=== PATIENT | male | born 1995 | race Caucasian/White ===

== ENCOUNTER 2016-11-06 18:16 | Emergency (ER) | payer MEDICAID, OTHER ==
[~2016-11-06] VITALS: Ht 170.2 cm; Wt 78.0 kg
[~2016-11-06 18:16] MED LIST: HYDR-3498 PO; NAPR-688 PO; OMEP20CA9 PO; ONDA4TAB35 PO
[2016-11-06 18:53] VITALS: Ht 170.2 cm; Wt 78.0 kg
--- NOTE | 2016-11-06 19:48 | ERD ---
ER Documentation Chief Complaint Date/Time DATE: 11/06/16 TIME: 19:43 Chief Complaint Blurry vision, Weak left arm. Had smoked weed in AM HPI 21-year-old male ambulatory to the ED with multiple complaints. He admits to doing "some kind of drugs," yesterday and has been having ongoing symptoms since including intermittent dizziness, blurred vision, generalized weakness anxiety and [place]. No chest pain or palpitations. No abdominal pain, nausea vomiting. No shortness of breath or cough. No fevers or chills. Denies depression, hallucinations, suicidality or homicidality. ROS All systems reviewed and are negative except as per history of present illness. Medications Home Meds Active Scripts Ondansetron Hcl* (Zofran* ODT) 4 mg -ODT Tab.disper, 4 MG PO Q6 Y for NAUSEA AND /OR VOMITING, #10 TAB Prov:ANTIONETTE OSORIO PA-C 03/09/15 Omeprazole* (Prilosec*) 20 Mg Capsule.dr, 20 MG PO DAILY for 14 Days, CAP Prov:ANTIONETTE OSORIO PA-C 03/09/15 Naproxen* (Naproxen*) 500 Mg Tablet, 500 MG PO BID Y for PAIN, #30 TAB Prov:DANETTE VILLA PA-C 02/26/15 Hydrocodone Bit-Acetaminophen* ([place]*) 5-325 Mg Tab, 1 TAB PO Q6 Y for PAIN, # 7 TAB Prov:DANETTE VILLA PA-C 02/26/15 Allergies Allergies: Coded Allergies: No Known Allergy (Unverified , 02/26/15) PMhx/Soc Reviewed in chart. As per HPI. History of Surgery: No Anesthesia Reaction: No Hx Neurological Disorder: No Hx Respiratory Disorders: No Hx Cardiac Disorders: Yes (heart murmur) Hx Psychiatric Problems: Yes Hx Miscellaneous Medical Probl: Yes Hx Alcohol Use: Yes Hx Substance Use: Yes (marijuana) Hx Tobacco Use: Yes Smoking Status: Heavy tobacco smoker FmHx No sudden cardiac , stroke or cancer Physical Exam Vitals Vital Signs Date Time Temp Pulse Resp B/P Pulse Ox O2 Delivery O2 Flow Rate FiO2 11/06/16 18:53 99.2 116 20 159/94 96 Physical Exam Const: Alert, anxious. Head: Atraumatic Eyes: Pupils dilated but equal reactive to light. Normal Conjunctiva. Horizontal nystagmus. ENT: Normal External Ears, Nose and Mouth. Pharynx is clear without erythema or exudate. Neck: Full range of motion. Neck is supple nontender. No lymphadenopathy or masses. No goiter. Resp: Breath sounds are equal and clear to auscultation bilaterally Cardio: Regular rate and rhythm, no murmurs Abd: Soft, non tender, non distended. Normal bowel sounds Skin: No petechiae or rashes Back: No midline or flank tenderness Ext: No cyanosis, or edema Neur: Awake and alert. Cranial nerves II through XII are grossly intact. Motor and sensory equal bilaterally. Gait is normal. Psych: Patient appears anxious but not depressed. Denies hallucinations. Results 24 hrs Current Medications Medications (Trade) Dose Ordered Sig/Pebbles Route PRN Reason Start Time Stop Time Status Last Admin Dose Admin Lorazepam (Ativan) 2 mg ONCE ONCE PO 11/06/16 20:00 11/06/16 20:01 DC 11/06/16 20:06 EKG: Time: 19: 14. Sinus tachycardia. Ventricular 115. Normal UT and QRS. No ST-T wave changes. No axis deviation or ectopy. EP interpretation: Sinus tachycardia otherwise normal ECG. Procedures/MDM DOCUMENTS REVIEWED: ED nurse, prior ED MEDICAL DECISION MAKIN-year-old male ambulatory to the ED with multiple complaints after ingestion "some kind of drugs" yesterday. Presentation consistent with anxiety and drug abuse likely stimulant, e.g. crystal meth. No depression, suicidality or homicidality. No focal neurologic deficit, headache or indication for neuroimaging. Doubt hyperthyroid. Stable for discharge with precautionary instructions, drug cessation counseling and outpatient follow-up as counseled. Counseled patient regarding diagnostic workup, diagnosis and need for followup. Understands to return to ED if symptoms recur, worsen or any other concerns. Departure Diagnosis: Primary Impression: Multiple complaints Additional Impressions: Anxiety reaction Drug abuse Condition: Stable RITIKA ANNE MD Nov 06, 2016 19:48
[2016-11-06] MEDS ORDERED: LORAZEPAM 1 MG TAB PO ONE (20:00)
== END 2016-11-06 20:10 | disposition home or self-care (01) ==
LOC: FTE 18:16
DX: F41.1 Generalized anxiety disorder (principal); F19.90 Other psychoactive substance use, unspecified, uncomplicated; R42 Dizziness and giddiness; R53.1 Weakness; F17.210 Nicotine dependence, cigarettes, uncomplicated
CPT/HCPCS: 93005; Z7502; Z7610

== ENCOUNTER 2017-12-04 08:53 | Emergency (ER) | END 2017-12-04 10:34 | disposition home or self-care (01) ==

== ENCOUNTER 2018-09-07 18:37 | Emergency (ER) | payer OTHER ==
[~2018-09-07] VITALS: Ht 170.2 cm; Wt 97.3 kg
[~2018-09-07 18:37] MED LIST changes: +CEPH-443 PO; +SULF1TAB31 PO
[2018-09-07 18:38] VITALS: BP 144/84; PULSE 79; RESP 16; Ht 170.2 cm; Wt 97.3 kg
[2018-09-07] MEDS ORDERED: BACI28.34 TOP (19:10)
[2018-09-07] MEDS ORDERED: BACITRACIN 0.9 GM OINT TOP ONE (19:30)
--- NOTE | 2018-09-07 19:38 | ERD ---
ER Documentation Chief Complaint Chief Complaint LEFT KNEE WOUND CHECK [id number] AGO HPI 23-year-old male presents for wound check to abrasion incurred on left knee 3 weeks ago. States that he has been picking at the scab. Denies any fevers, chills, erythema, edema, discharge. Denies any allergies. Denies any medical problems. ROS All systems reviewed and are negative except as per history of present illness. Medications Home Meds Active Scripts Bacitracin* (Bacitracin Zinc Oint*) 28.35 Gm Oint, 1 APPLIC TOP BID for wound, #1 TUB APPLI TO Prov:JANETH ALEJANDRO 09/07/18 Cephalexin* (Keflex*) 500 Mg Capsule, 500 MG PO QID for 7 Days, CAP Prov:ABDOUL COUCH MD 12/04/17 Sulfamethoxazole/Trimethoprim* (Bactrim Ds* Tablet) 1 Each Tablet, 1 TAB PO BID for 7 Days, #14 TAB Prov:ABDOUL COUCH MD 12/04/17 Ondansetron Hcl* (Zofran* ODT) 4 mg -ODT Tab.disper, 4 MG PO Q6 PRN for NAUSEA AND/OR VOMITING, #10 TAB Prov:ANTIONETTE OSORIO PA-C 03/09/15 Omeprazole* (Prilosec*) 20 Mg Capsule.dr, 20 MG PO DAILY for 14 Days, CAP Prov:ANTIONETTE OSORIO PA-C 03/09/15 Naproxen* (Naproxen*) 500 Mg Tablet, 500 MG PO BID PRN for PAIN, #30 TAB Prov:DANETTE VILLA PA-C 02/26/15 Hydrocodone Bit-Acetaminophen* ([place]*) 5-325 Mg Tab, 1 TAB PO Q6 PRN for PAIN, #7 TAB Prov:DANETTE VILLA PA-C 02/26/15 Allergies Allergies: Coded Allergies: No Known Allergy (Unverified , 09/07/18) PMhx/Soc History of Surgery: No Anesthesia Reaction: No Hx Neurological Disorder: No Hx Respiratory Disorders: No Hx Cardiac Disorders: Yes (heart murmur) Hx Psychiatric Problems: Yes Hx Miscellaneous Medical Probl: Yes Hx Alcohol Use: Yes (social) Hx Substance Use: Yes (marijuana) Hx Tobacco Use: No FmHx Family History: No diabetes, No coronary disease, No other Physical Exam Vitals Vital Signs Date Temp Pulse Resp B/P (MAP) Pulse Ox O2 O2 Flow FiO2 Time Delivery Rate 09/07/18 97.6 79 16 144/84 99 18:38 (104) Physical Exam Const: No acute distress Head: Atraumatic Eyes: Normal Conjunctiva ENT: Normal External Ears, Nose and Mouth. Neck: Full range of motion. No meningismus. Resp: Clear to auscultation bilaterally Cardio: Regular rate and rhythm, no murmurs Abd: Soft, non tender, non distended. Normal bowel sounds Skin: Approximately 2 cm abrasion noted over the patellar of left knee. There is no surrounding erythema or edema. There is no discharge noted. Distal pulses are intact. There is no pallor or cyanosis. No lymphatic streaking noted. Back: No midline or flank tenderness Ext: No cyanosis, or edema Neur: Awake and alert Psych: Normal Mood and Affect Results 24 hrs Current Medications Medications Dose Sig/Pebbles Start Time Status Last (Trade) Ordered Route PRN Stop Time Admin Dose Reason Admin Bacitracin 1 applic ONCE ONCE 09/07/18 DC 09/07/18 (Bacitracin TOP 19:30 09/07/18 19:17 Oint (Ud)) 19:30 Procedures/MDM Patient's presentation is consistent with abrasion without infection or other complication. Patient was advised to stop picking at the scab and give it a chance to heal. In addition patient was prescribed bacitracin and told to apply 2 times daily. I have low suspicion for infection, compartment syndrome, sepsis, or any other emergent condition. Patient discharged with strict ER precautions. Patient advised to follow up with PMD. All questions answered at discharge. Departure Diagnosis: Primary Impression: Abrasion Additional Impression: Encounter for wound re-check Condition: Stable Patient Instructions: Wound Care, Abrasion Additional Instructions: FOLLOW UP WITH YOUR PRIMARY CARE PHYSICIAN TOMORROW.Return to this facility if you are not improving as expected. If there is fevers, chills, swelling, redness, pain, or discharge, return to ER immediately. JANETH ALEJANDRO Sep 07, 2018 19:38
== END 2018-09-07 19:21 | disposition home or self-care (01) ==
LOC: FTE 18:37
DX: S80.212A Abrasion, left knee, initial encounter (principal); X58.XXXA Exposure to other specified factors, initial encounter; Y92.9 Unspecified place or not applicable
CPT/HCPCS: Z7502; Z7610; 99282

== ENCOUNTER 2018-10-10 22:27 | Emergency (ER) | payer OTHER ==
[~2018-10-10] VITALS: Wt 89.0 kg
[~2018-10-10 22:27] MED LIST changes: +BACI28.34 TOP
[2018-10-10] MEDS ORDERED: KETOROLAC 30 MG INJ IM STA (23:16)
[2018-10-11] MEDS ORDERED: IBUP-1542 PO (02:42)
[2018-10-11] MEDS ORDERED: HYDR-4011 PO (02:42)
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
[2018-10-11 03:00] VITALS: BP 131/79; PULSE 71; RESP 18
== END 2018-10-11 03:03 | disposition home or self-care (01) ==
LOC: FTE 22:27
DX: S52.514A Nondisplaced fracture of right radial styloid process, initial encounter for closed fracture (principal); V29.9XXA Motorcycle rider (driver) (passenger) injured in unspecified traffic accident, initial encounter
CPT/HCPCS: 29105; 73090; 73110; 73130; 96372; J1885; Z7502

== ENCOUNTER 2018-10-20 11:41 | Emergency (ER) | payer OTHER ==
[~2018-10-20] VITALS: Ht 172.7 cm; Wt 87.9 kg
[~2018-10-20 11:41] MED LIST changes: +HYDR-4011 PO; +IBUP-1542 PO
[2018-10-20 11:43] VITALS: Ht 172.7 cm; Wt 87.9 kg
[2018-10-20] MEDS ORDERED: KETOROLAC 60 MG INJ IM STA (12:37)
[2018-10-20] MEDS ORDERED: IBUP-1542 PO (14:32)
[2018-10-20 14:39] VITALS: BP 140/76; PULSE 62; RESP 16
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
== END 2018-10-20 14:40 | disposition home or self-care (01) ==
LOC: FTE 11:41
DX: S89.91XA Unspecified injury of right lower leg, initial encounter (principal); S69.91XA Unspecified injury of right wrist, hand and finger(s), initial encounter; W18.39XA Other fall on same level, initial encounter; Y92.410 Unspecified street and highway as the place of occurrence of the external cause; Z87.891 Personal history of nicotine dependence
CPT/HCPCS: 29125; 73562; 96372; J1885; Z7502

== ENCOUNTER 2018-12-19 06:00 | Emergency (ER) | payer OTHER ==
[~2018-12-19] VITALS: Ht 172.7 cm; Wt 86.9 kg
[2018-12-19 06:04] VITALS: BP 142/90; PULSE 86; RESP 18; Ht 172.7 cm; Wt 86.9 kg
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
[2018-12-19] MEDS ORDERED: HYDROCODONE/APAP (5/325) TAB PO ONE (07:00)
[2018-12-19] MEDS ORDERED: IBUP-1542 PO (07:57)
== END 2018-12-19 08:05 | disposition home or self-care (01) ==
LOC: FTE 06:00
DX: S50.312A Abrasion of left elbow, initial encounter (principal); F17.210 Nicotine dependence, cigarettes, uncomplicated; S59.912A Unspecified injury of left forearm, initial encounter; V23.4XXA Motorcycle driver injured in collision with car, pick-up truck or van in traffic accident, initial encounter
CPT/HCPCS: 73080; 73110; Z7502; Z7610